=== PATIENT | female | born 1935 | race Caucasian/White ===

== ENCOUNTER 2018-04-19 15:10 | Observation (INO) | payer OTHER ==
[~2018-04-19] VITALS: Ht 165.1 cm; Wt 63.5 kg
[~2018-04-19 15:10] MED LIST: AGGRENOX 25 MG1 EACH PO; AMLODIPINE BESY10 M1 PO; ATORVASTATIN CA40 M1 PO; CALTRATE 600 +1 EACH PO; DONEPEZIL HCL10 M1 PO; ELIQUIS5 M1 PO; FISH OIL 1,0001 EAC2 PO; FOLIC ACID1 M1 PO; FUROSEMIDE40 M1 PO; GLIPIZIDE10 M2 PO; HYDROCHLOROTHIA25 M1 PO; LISINOPRIL40 M1 PO; METOPROLOL TAR100 M1 PO; MULTI-DAY VITA1 EACH PO; NAMENDA XR28 M1 PO; VITAMIN B-12100 MC1 PO; VITAMIN D1000 UNIT PO
--- NOTE | 2018-04-19 16:04 | ED GENERAL ADULT ---
History of Present Illness General Chief Complaint: General Adult Stated Complaint: SENT BY DR FOR HIGH WHITE BLOOD CELL COUNT Source: family, old records Exam Limitations: dementia Vital Signs & Intake/Output Vital Signs & Intake/Output Vital Signs Date Time Temp Pulse Resp B/P B/P Pulse O2 O2 Flow FiO2 Mean Ox Delivery Rate 04/20 1156 97.6 84 18 174/77 97 Room Air 04/20 0851 97.6 88 18 197/86 04/20 0851 97.6 88 18 197/86 04/20 0851 97.6 88 18 197/86 04/20 0849 97.6 88 18 197/86 99 Room Air 04/20 0659 98.1 79 18 168/78 96 Room Air 04/20 0405 97.6 73 18 166/72 97 Room Air 04/20 0001 97.8 88 16 156/76 96 Room Air 04/19 2158 95 145/67 04/19 2019 98.0 95 18 145/67 95 Room Air 04/19 1604 Room Air 04/19 1531 98.1 75 18 158/81 96 Room Air ED Intake and Output 04/20 0000 04/19 1200 Intake Total Output Total Balance Patient 140 lb Weight Weight Estimated Measurement Method Allergies Coded Allergies: No Known Drug Allergies (UNKNOWN 04/07/16) Reconcile Medications Amlodipine Besylate 10 MG TABLET 1 TAB PO DAILY BP (Reported) Apixaban (Eliquis) 5 MG TABLET 0 PO BID DVT PLEASE TAKE 2 TABS(10MG) TWICE DAILY ON 04/11(PM),04/12,04/13,04/14. PLEASE TAKE 1 TAB(5MG) TWICE DAILY STARTING ON 04/15. PLEASE TALK TO YOUR PCP ABOUT DURATION OF THERAPY. Atorvastatin Calcium 40 MG TABLET 1 TAB PO DAILY CHOLESTEROL (Reported) Calcium Carbonate/Vitamin D3 (Caltrate 600 + D Tablet) (Unknown Strength) TABLET (Unknown Dose) PO DAILY SUPPLEMENT (Reported) Cholecalciferol (Vitamin D3) (Vitamin D) 1,000 UNIT TABLET 1 TAB PO DAILY SUPPLEMENT (Reported) Cyanocobalamin (Vitamin B-12) (Vitamin B-12) 100 MCG TABLET 1 TAB PO DAILY SUPPLEMENT (Reported) Donepezil HCl 10 MG TABLET 1 TAB PO DAILY DEMENTIA (Reported) Folic Acid 1 MG TABLET 1 TAB PO DAILY SUPPLEMENT (Reported) Glipizide 10 MG TABLET 1 TAB PO DAILY DIABETES (Reported) Hydrochlorothiazide 25 MG TABLET 1 TAB PO DAILY BP (Reported) Lisinopril 40 MG TABLET 1 TAB PO DAILY BP (Reported) Memantine HCl (Namenda XR) 28 MG CAP.SPR.24 1 CAP PO DAILY DEMENTIA (Reported ) Metoprolol Tartrate 100 MG TABLET 1 TAB PO DAILY HEART/BP (Reported) Multivitamin (Multi-Day Vitamins) 1 EACH TABLET 1 TAB PO DAILY SUPPLEMENT ( Reported) Orwell-3/Dha/Epa/Fish Oil (Fish Oil 1,000 MG Softgel) 1 EACH CAPSULE 1 CAP PO DAILY SUPPLEMENT (Reported) Triage Note: RECEIVED 82 YO FEMALE SENT BY DR ESPINOSA FOR ELEVATED WBC, 27,000. PT HAD ROUTINE BLOOD TESTS DONE SUNDAY AND RECEIVED RESULTS TODAY. PT ONLY SYMPTOMS ARE RUMMY NOSE. NO C/O FEELING SICK, OR DYSURIA. NO FEVER OR CHILLS RECENTLY. Triage Nurses Notes Reviewed? yes HPI: Patient has dementia and lives at home alone. Her family checks in on her. Patient had routine blood work performed on Sunday. Family received a phone call from her primary doctor today asking them to bring her to the emergency room because her white blood cell count is elevated. They have not noticed any fevers. Patient has dementia and is unable to provide any history. (nAya JULIAN,Reji Gale) Past History Travel History Traveled to [place] past 21 day No Medical History Any Pertinent Medical History? see below for history Neurological: dementia EENT: NONE Cardiovascular: hypertension, hyperlipidemia, EDEMA Respiratory: NONE Gastrointestinal: NONE Hepatic: NONE Renal: NONE Musculoskeletal: NONE Psychiatric: NONE Endocrine: diabetes Blood Disorders: NONE Cancer(s): NONE BIOMEDICAL EQUIPMENT TECHNICIAN/Reproductive: NONE History of MRSA: No History of VRE: No History of CDIFF: No Pneumonia Vaccine: 08/26/09 Surgical History Surgical History: cholecystectomy, hysterectomy Psychosocial History Who do you live with Patient/Self Services at Home None What is your primary language Angolan Tobacco Use: Never used ETOH Use: denies use Illicit Drug Use: denies illicit drug use Family History Family History, If Any: MOTHER FH: diabetes mellitus SISTER FH: diabetes mellitus FATHER FH: heart disease Hx Contributory? No (Reji Joyner MD) Review of Systems Review of Systems Constitutional: Reports: see HPI. (Reji Joyner MD) Physical Exam Physical Exam General Appearance: well developed/nourished, no apparent distress, awake Head: atraumatic Eyes: Bilateral: PERRL, EOMI. Ears, Nose, Throat: normal pharynx, normal ENT inspection, hearing grossly normal Neck: normal inspection, supple, full range of motion Respiratory: normal breath sounds, chest non-tender, no respiratory distress, lungs clear Cardiovascular: regular rate/rhythm, normal peripheral pulses Gastrointestinal: normal bowel sounds, soft, non-tender, no organomegaly Back: normal inspection, normal range of motion Extremities: normal inspection, normal capillary refill, normal range of motion, no edema Neurologic/Psych: no motor/sensory deficits, awake, normal gait, normal mood/ affect Skin: intact, normal color, warm/dry, NO DECUB, NO ERYTHMEMA Core Measures ACS in differential dx? No CVA/TIA Diagnosis: No Sepsis Present: No Sepsis Focused Exam Completed? No (Anya JULIAN,Reji Gale) Progress Differential Diagnoses I considered the following diagnoses in my evaluation of the patient: [SEPSIS, UTI, BACTEREMIA, PNEUMONIA, CELLULITIS, LEUKEMIA] Plan of Care: Orders Procedure Date/time Status Regular Diet 04/20 B Active CASE MANAGEMENT CONSULT 04/20 1024 Active CBC WITHOUT DIFFERENTIAL 04/20 0400 Complete BASIC METABOLIC PANEL 04/[address] in observation 04/19 1736 Active Patient Data 04/19 1736 Active Vital Signs 04/19 1736 Active Code Status 04/19 1736 Active Intake & Output 04/19 1604 Active BLOOD CULTURE 04/19 1603 Active URINALYSIS 04/19 1603 Complete LACTIC ACID 04/19 1603 Complete COMPREHENSIVE METABOLIC PANEL 04/19 1603 Complete CBC WITHOUT DIFFERENTIAL 04/19 1603 Complete Current Medications Sig/María Start time Last Medication Dose Stop Time Status Admin Donepezil HCl 10 MG AT BEDTIME 04/20 2100 AC (Aricept) Atorvastatin Calcium 40 MG 1700 04/20 1700 AC (Lipitor) Amlodipine Besylate 10 MG DAILY 04/20 0900 AC 04/20 (Norvasc) 0851 Furosemide 20 MG DAILY 04/20 0900 AC 04/20 (Lasix) 0851 Glipizide 10 MG DAILY 04/20 0900 AC 04/20 (Glucotrol 10 MG Tab) 0851 Glipizide 5 MG DAILY 04/20 0900 AC 04/20 (Glucotrol 5MG Tab) 0851 Lisinopril 40 MG DAILY 04/20 0900 AC 04/20 (Prinivil) 0851 Apixaban 5 MG BID 04/19 2100 AC 04/20 (Eliquis) 0851 Memantine 10 MG BID 04/19 2100 AC 04/20 (Namenda) 0851 Metoprolol Tartrate 50 MG BID 04/19 2100 AC 04/20 (Lopressor) 0851 Laboratory Tests 04/20/18 0345: Anion Gap 12, Estimated GFR 60, BUN/Creatinine Ratio 24.4, Glucose 96, Calcium 10.2, CBC w Diff MAN DIFF ORDERED, RBC 5.67 H, MCV 96.9, MCH 31.5 H, MCHC 32.5 L, RDW 17.1 H, MPV 9.9, Gran % 85.6 H, Lymphocytes % 9.9 L, Monocytes % 3.0, Eosinophils % 0.8, Basophils % 0.7, Absolute Granulocytes 21.4 H, Absolute Lymphocytes 2.5, Absolute Monocytes 0.8 H, Absolute Eosinophils 0.2, Absolute Basophils 0.2, Platelet Estimate ADEQUATE, Poikilocytosis 1+ 04/19/18 1903: Lactic Acid Cancelled 04/19/18 1637: Urine Color YEL, Urine Clarity CLEAR, Urine pH 6.0, Ur Specific [place] >= 1.030 , Urine Protein 100 H, Urine Ketones TRACE H, Urine Nitrite NEG, Urine Bilirubin NEG, Urine Urobilinogen 2.0 H, Ur Leukocyte Esterase NEG, Ur Microscopic SEDIMENT EXAMINED, Urine RBC 1-3, Urine WBC 1-3 H, Ur Epithelial Cells FEW, Urine Bacteria MANY H, Urine Hemoglobin NEG, Urine Glucose NEG 04/19/18 1622: Anion Gap 11, Estimated GFR 47 L, BUN/Creatinine Ratio 22.7, Glucose 170 H, Lactic Acid 1.5, Calcium 10.5 H, Total Bilirubin 1.1, AST 26, ALT 33, Alkaline Phosphatase 127 H, Total Protein 7.5, Albumin 3.9, Globulin 3.6, Albumin/ Globulin Ratio 1.1, CBC w Diff MAN DIFF ORDERED, RBC 5.76 H, MCV 96.7, MCH 31.5 H, MCHC 32.6 L, RDW 16.9 H, MPV 9.9, Gran % 91.9 H, Lymphocytes % 4.8 L, Monocytes % 2.6, Eosinophils % 0.6, Basophils % 0.1, Absolute Granulocytes 20.9 H, Segmented Neutrophils 90 H, Absolute Lymphocytes 1.1 L, Lymphocytes 4 L, Monocytes 4, Absolute Monocytes 0.6, Eosinophils 2, Absolute Eosinophils 0.1, Absolute Basophils 0, Platelet Estimate ADEQUATE, Anisocytosis 1+ Microbiology 04/19 1652 BLOOD: Blood Culture - RES 04/19 1622 BLOOD: Blood Culture - RES Diagnostic Imaging: Viewed by Me: Radiology Read. Discussed w/RAD: Radiology Read. CXR Impression: PATIENT: KATHY MATHEW PRESENT AGE: 82 PATIENT ACCOUNT NO: [id number] : 33 LOCATION: [facility] ORDERING PHYSICIAN: Reji Joyner MD SERVICE DATE: 04/19/18 EXAM TYPE: RAD - XRY-PORTABLE CHEST XRAY EXAMINATION: XR PORTABLE CHEST CLINICAL INFORMATION: Leukocytosis. COMPARISON: 04/06/2016 TECHNIQUE: Portable frontal view of the chest was obtained. FINDINGS: The lungs are well expanded. Diffuse bronchial wall thickening noted. No pleural effusion or pneumothorax. No dense consolidation. The cardiomediastinal silhouette is within normal limits of size, with a calcified aorta. IMPRESSION: No dense consolidation. Bronchial wall thickening can be seen with a small airways process such as asthma or atypical/ viral infection. DICTATED BY: César Dorman MD DATE/TIME DICTATED:04/19/181621 BUS WASHER:TAL DATE/TIME TRANSCRIBED:04/19/181621 CONFIDENTIAL, DO NOT COPY WITHOUT APPROPRIATE AUTHORIZATION. <Electronically signed in Other Vendor System> SIGNED BY: César Dorman MD 04/19/18 1630 Initial ED EKG: none Hand-Off Endorsed To: Orlando Diaz MD Endorsed Time: 1900 Pending: labs (REPEAT) Comments: Discussed with Dr. Townsend. He is concerned about her going home tonight given her leukocytosis. Patient will remain in the emergency department tonight for close observation. (Anya JULIAN,Reji Gale) Differential Diagnoses I considered the following diagnoses in my evaluation of the patient: Hand-Off Endorsed To: Otis Quintana DO Endorsed Time: 0700 Pending: labs (Orladno Diaz MD) Departure Departure Disposition: STILL A PATIENT Condition: Stable Clinical Impression Primary Impression: Leukocytosis Referrals: Jcarlos Duncan MD (PCP/Family) Departure Forms: Customer Survey General Discharge Information (Reji Joyner MD) Departure Comments 04/20/18 Observation discharge note. The patient was observed for gait instability and fever. She is at her baseline status. I reviewed the labs with the on-call meatcutter Dr. Ribeiro. The patient will follow-up with Dr. Beverly and with the meatcutter this week. The daughter says that she is comfortable taking care of her at home. (Otis Quintana DO) Critical Care Note Critical Care Note Critical Care Time: non-applicable (Reji Joyner MD) ED Attending Observation Initial Observation Note: I have seen and personally examined KATHY MATHEW on 04/19/18 at 1737. I agree with the current emergency department documentation. The disposition (admission or discharge) is uncertain at this time, she needs a period of observation for the following reason(s): [Patient has leukocytosis. After reviewing the prior CBCs her white count has been increasing over the past 2 years. This raises the concern for myeloproliferative disorder. However she does have leukocytosis with a left shift. Patient will remain in the emergency department tonight to make sure she does not get septic. Repeat CBCs in the morning and if it is not increasing and/or the patient does not develop a fever or any other signs of infection the patient will be stable for discharge with follow-up. If however she begins to show signs of infection she will require admission for treatment.] The ED Nurse caring for this patient has been personally informed as to what the patient is being observed for. (Reji Joyner MD) Observation Re-Evaluation: I have reevaluated KATHY MATHEW on 04/19/18 at 2303. The physical findings that support the continued need to observe this patient include.... pt resting comfortably in the ED... will continue meds, recheck cbc after fluid bolus. (Emily JULIAN,Orlando Harmon)
--- NOTE | 2018-04-19 16:30 | RADIOLOGY REPORT ---
EXAMINATION: XR PORTABLE CHEST CLINICAL INFORMATION: Leukocytosis. COMPARISON: 04/06/2016 TECHNIQUE: Portable frontal view of the chest was obtained. FINDINGS: The lungs are well expanded. Diffuse bronchial wall thickening noted. No pleural effusion or pneumothorax. No dense consolidation. The cardiomediastinal silhouette is within normal limits of size, with a calcified aorta. IMPRESSION: No dense consolidation. Bronchial wall thickening can be seen with a small airways process such as asthma or atypical/viral infection.
[2018-04-19 16:39] LABS: ABSOLUTE BASOPHIL COUNT 0 /CUMM (0.0-0.2); ABSOLUTE LYMPH COUNT 1.1 /CUMM (1.2-3.4); GRANULOCYTE % 91.9 % (42.2-75.2); MEAN CORPUSCULAR HGB CONC 32.6 G/DL (33.0-37.0); MEAN PLATELET VOLUME 9.9 FL (7.4-10.4)
[2018-04-19 16:46] LABS: ABSOLUTE EOSINOPHIL COUNT 0.1 /CUMM (0.0-0.7); ABSOLUTE GRANULOCYTE CT 20.9 /CUMM (1.4-6.5); ABSOLUTE MONOCYTE COUNT 0.6 /CUMM (0.10-0.60); BASOPHIL % 0.1 % (0.0-2.0); EOSINOPHIL % 0.6 % (0-5); HEMATOCRIT 55.7 % (37-47); MEAN CORPUSCULAR HGB 31.5 PG (27.0-31.0); MEAN CORPUSCULAR VOLUME 96.7 FL (81.0-99.0); PLATELET COUNT 289 /CUMM (130-400); RBC DISTRIBUTION WIDTH 16.9 % (11.5-14.5); RED BLOOD CELL CT 5.76 /CUMM (4.20-5.40); WHITE BLOOD CELL COUNT 22.7 /CUMM (4.8-10.8)
[2018-04-20 03:49] LABS: ABSOLUTE BASOPHIL COUNT 0.2 /CUMM (0.0-0.2); ABSOLUTE EOSINOPHIL COUNT 0.2 /CUMM (0.0-0.7); ABSOLUTE GRANULOCYTE CT 21.4 /CUMM (1.4-6.5); ABSOLUTE LYMPH COUNT 2.5 /CUMM (1.2-3.4); ABSOLUTE MONOCYTE COUNT 0.8 /CUMM (0.10-0.60); BASOPHIL % 0.7 % (0.0-2.0); EOSINOPHIL % 0.8 % (0-5); GRANULOCYTE % 85.6 % (42.2-75.2); MEAN CORPUSCULAR HGB 31.5 PG (27.0-31.0); MEAN CORPUSCULAR HGB CONC 32.5 G/DL (33.0-37.0); MEAN CORPUSCULAR VOLUME 96.9 FL (81.0-99.0); MEAN PLATELET VOLUME 9.9 FL (7.4-10.4); PLATELET COUNT 288 /CUMM (130-400); RBC DISTRIBUTION WIDTH 17.1 % (11.5-14.5); RED BLOOD CELL CT 5.67 /CUMM (4.20-5.40)
[2018-04-20 13:33] VITALS: BP 172/75
== END 2018-04-20 13:34 ==
LOC: ERH 15:10 → ERHI 17:36
PROVIDERS: Emergency Medicine; Pediatrics
DX: D72.829 Elevated white blood cell count, unspecified (principal); F03.90 Unspecified dementia, unspecified severity, without behavioral disturbance, psychotic disturbance, mood disturbance, and anxiety; I10 Essential (primary) hypertension; E78.5 Hyperlipidemia, unspecified; E11.9 Type 2 diabetes mellitus without complications; Z79.84 Long term (current) use of oral hypoglycemic drugs; R50.9 Fever, unspecified; R26.9 Unspecified abnormalities of gait and mobility
CPT/HCPCS: 6090; 71045; 81001; 87040; G0378